=== PATIENT | male | born 1995 | race Caucasian/White ===

== ENCOUNTER 2018-04-06 10:11 | Emergency (ER) | payer OTHER ==
--- NOTE | 2018-04-06 10:21 | EDM.PDOC ---
ED HPI GENERAL MEDICAL PROBLEM - General Chief Complaint: Lower Extremity Injury/Pain Stated Complaint: PATIENT THINKS HE BROKE HIS ANKLE Time Seen by Provider: 04/06/18 10:20 Source of Information: Reports: Patient History Limitations: Reports: No Limitations - History of Present Illness INITIAL COMMENTS - FREE TEXT/NARRATIVE: HISTORY AND PHYSICAL: History of present illness: [Lucas is a 22-year-old male presented to the ED for right ankle injury. He states he was at work when he he was stepping backwards down some steps. He reports there was a block of wood the the right of the steps and when he was stepping down to the third step from the bottom he had most of his foot on the wood block and part on the step. He lost his foot and he fell to the ground landing on the lateral part of his right foot and twisted his ankle. He has not been able to put any weight on his ankle. He took motrin without relief of pain. ] Review of systems: As per history of present illness and below otherwise all systems reviewed and negative. Past medical history: As per history of present illness and as reviewed below otherwise noncontributory. Surgical history: As per history of present illness and as reviewed below otherwise noncontributory. Social history: No reported history of drug or alcohol abuse. Family history: As per history of present illness and as reviewed below otherwise noncontributory. Physical exam: General: patient lying comfortably in no acute distress HEENT: Atraumatic, normocephalic, pupils reactive, negative for conjunctival pallor or scleral icterus Lungs: Clear to auscultation, breath sounds equal bilaterally, chest nontender. Heart: S1S2, regular, negative for clicks, rubs, or JVD. Abdomen: Soft, nondistended, nontender. Negative for masses or hepatosplenomegaly. Negative for costovertebral tenderness. Pelvis: Stable nontender. Genitourinary: Deferred. Rectal: Deferred. Extremities: Right lateral ankle is swollen but no obvious deformity. Skin is intact. Tender to palpation of the lateral malleolus and lateral part of the foot over the 5th distal metatarsal. ROM of ankle limited due to pain. No pain with squeeze test. No pain to palpation of the knee and normal ROM of knee. negative for cords or calf pain. CMS intact distally. Neuro: Awake, alert, oriented. Cranial nerves II through XII unremarkable. Cerebellum unremarkable. Motor and sensory unremarkable throughout. Exam nonfocal. Notes: Diagnostics: [x-ray right ankle x-ray right foot] Therapeutics: [Toradol 60mg IM] Impression: [Distal fibular fracture] Plan: [#1 Ice, elevate, motrin and no weight bearing until further evaluation. May take norco as needed for severe pain. #2 Follow up with orthopedic clinc #3 Return to emergency department as needed as discussed] Definitive disposition and diagnosis as appropriate pending reevaluation and review of above. Right Ankle Pain Score (Numeric/FACES): 9 - Related Data Allergies Allergy/AdvReac Type Severity Reaction Status Date / Time No Known Allergies Allergy Verified 04/06/18 10:25 Home Meds: Home Meds . [No Known Home Meds] 04/06/18 [History] Review of Systems - Review of Systems Review Of Systems: ROS reveals no pertinent complaints other than HPI. ED EXAM, GENERAL - Physical Exam Exam: See Below (See dictation) Course - Vital Signs Last Recorded V/S: Last Vital Signs Temp 36.6 C 04/06/18 10:25 Pulse 72 04/06/18 10:25 Resp 18 04/06/18 10:25 BP 129/56 L 04/06/18 10:25 Pulse Ox 97 04/06/18 10:25 - Orders/Labs/Meds Orders: Active Orders 24 hr Category Date Time Status Ankle Min 3V Rt [CR] Stat Exams 04/06/18 10:30 Taken Foot 2V Rt [CR] Stat Exams 04/06/18 10:30 Taken Meds: Medications Discontinued Medications Generic Name Dose Route Start Last Admin Trade Name Fran PRN Reason Stop Dose Admin Ketorolac Tromethamine 60 mg 04/06/18 10:30 04/06/18 10:56 Toradol IM 04/06/18 10:31 60 mg ONETIME ONE Administration Departure - Departure Time of Disposition: 11:30 Disposition: Home, Self-Care 01 Condition: Good Clinical Impression: Fracture of distal end of fibula - Discharge Information Forms: ED Department Discharge Additional Instructions: The following information is given to patients seen in the emergency department who are being discharged to home. This information is to outline your options for follow-up care. We provide all patients seen in our emergency department with a follow-up referral. The need for follow-up, as well as the timing and circumstances, are variable depending upon the specifics of your emergency department visit. If you don't have a primary care physician on staff, we will provide you with a referral. We always advise you to contact your personal physician following an emergency department visit to inform them of the circumstance of the visit and for follow-up with them and/or the need for any referrals to a consulting specialist. The emergency department will also refer you to a specialist when appropriate. This referral assures that you have the opportunity for follow-up care with a specialist. All of these measure are taken in an effort to provide you with optimal care, which includes your follow-up. Under all circumstances we always encourage you to contact your private physician who remains a resource for coordinating your care. When calling for follow-up care, please make the office aware that this follow-up is from your recent emergency room visit. If for any reason you are refused follow-up, please contact the [facility] at and asked to speak to the emergency department charge nurse. [facility] [address] [place], [place] [id number] [facility] [address], [address] [place] [address] #1 Ice, elevate, motrin and no weight bearing until further evaluation. May take norco as needed for severe pain. #2 Follow up with orthopedic clinc #3 Return to emergency department as needed as discussed - My Orders Last 24 Hours: My Active Orders 04/06/18 10:30 Ankle Min 3V Rt [CR] Stat Foot 2V Rt [CR] Stat - Assessment/Plan Last 24 Hours: My Active Orders 04/06/18 10:30 Ankle Min 3V Rt [CR] Stat Foot 2V Rt [CR] Stat
[2018-04-06] MEDS ORDERED: Ketorolac 60 MG/2 ML SDV IM ONE (10:30)
--- NOTE | 2018-04-07 17:26 | CR ---
EXAM DATE: 04/06/18 PATIENT'S AGE: 22 Patient: GABRIELLA CREWS Facility: [place], [place] Site . Site : 1995 Study: XRay Extremity Right ankle [id number]/15/2018 10:58:46 AM Ordering Physician: Doctor Valdez Final Report: INDICATION: Right ankle injury and pain. TECHNIQUE: Three portable views of the right ankle. FINDINGS: Widening of the lateral aspect of the fibular epiphysis consistent with fracture. Soft tissue swelling at the fracture site. The mortise is uniform. IMPRESSION: Fracture of the distal right fibula with soft tissue swelling. Dictated by Uzair Britton MD @ Apr 06 2018 11:23AM (Electronic Signature) Report Signed by Proxy. ABIOLA
--- NOTE | 2018-04-07 17:26 | CR ---
EXAM DATE: 04/06/18 PATIENT'S AGE: 22 Patient: GABRIELLA CREWS Facility: [place], [place] Site . Site : 1995 Study: XRay Extremity Right foot [id number]/15/2018 10:59:13 AM Ordering Physician: Doctor Valdez Final Report: INDICATION: Right foot injury. TECHNIQUE: Two views of the right foot. FINDINGS: No acute fracture or dislocation. Joint spaces are maintained. Soft tissues are unremarkable. IMPRESSION: Negative right foot. Dictated by Uzair Britton MD @ Apr 06 2018 11:19AM (Electronic Signature) Report Signed by Proxy. ABIOLA
== END 2018-04-06 11:55 | disposition home or self-care (01) ==
LOC: MW.ED 10:11
DX: S82.831A Other fracture of upper and lower end of right fibula, initial encounter for closed fracture (principal); W10.9XXA Fall (on) (from) unspecified stairs and steps, initial encounter
CPT/HCPCS: 73610; 73620; 96372; 99283; J1885